=== PATIENT | female | born 2000 | race Caucasian/White ===

== ENCOUNTER 2023-09-09 11:46 | Emergency (ER) | payer OTHER, SELFPAY ==
[2023-09-09 12:07] VITALS: BP 113/75
[2023-09-09 12:40] LABS: % Basophils 0.6 % (0-2); % Eosinophils 1.2 % (0-6); % Immature Granulocytes 0.1 % (0-0.5); % Lymphocytes 29.6 % (20.5-51.1); % Monocytes 6.9 % (1.7-9.3); % Neutrophils 61.6 % (42.2-75.2); Absolute Eosinophils 0.1 10^3/uL (0-0.7); Absolute Monocytes 0.5 10^3/uL (0.1-0.6); Absolute Neutrophils 4.2 10^3/uL (1.4-6.5); Hematocrit 38.2 % (37.0-47.0); Hemoglobin 12.8 g/dL (12.0-16.0); Mean Corp Hgb Conc. 33.5 g/dL (33.0-37.0); Mean Corpuscular Hgb 26.7 pg (27.0-31.0); Mean Corpuscular Volume 79.6 fL (81.0-99.0); Mean Platelet Volume 9.9 fL (7.4-10.4); Nucleated Red Blood Cells % 0 %; Platelet Count 290 10^3/uL (130-400); Red Cell Dist. Width 12.8 % (11.5-14.5); White Blood Cell Count 6.9 10^3/uL (4.8-10.8)
[2023-09-09 12:46] LABS: HCG, Serum Qualitative Screen Negative
[2023-09-09 12:52] LABS: ALT (SGPT) 22 U/L (0-35); AST (SGOT) 21 U/L (14-36); Albumin 3.9 g/dl (3.5-5.0); Alkaline Phosphatase 75 U/L (38-126); Blood Urea Nitrogen 13 mg/dl (7-17); Calcium 9.2 mg/dl (8.4-10.2); Carbon Dioxide 24 mmol/L (22-30); Chloride 108 mmol/L (98-107); Glucose 98 mg/dl (70-99); Lipase 186 U/L (23-300); Potassium 3.8 mmol/L (3.5-5.1); Sodium 137 mmol/L (135-145); Total Bilirubin 0.6 mg/dl (0.2-1.3); Total Protein 6.8 g/dl (6.3-8.2); eGFR > 60.00
[2023-09-09 13:09] LABS: Urine Albumin Negative (Neg - Trace); Urine Bilirubin Negative (Negative); Urine Character Clear (Clear); Urine Color Yellow; Urine Glucose Negative (Negative); Urine Ketone Negative (Negative); Urine Leukocyte 2+ (Negative); Urine Nitrite Negative (Negative); Urine Occult Blood Negative (Negative); Urine Urobilinogen Negative (Neg - 1+)
[2023-09-09 13:50] VITALS: BMI 33.6
[2023-09-09 14:12] LABS: Urine Squamous Cell >30 /LPF (Few)
[2023-09-09 14:13] LABS: Urine Bacteria Few (Negative); Urine Red Blood Cell 0-2 /HPF (0-2)
--- NOTE | 2023-09-09 14:17 | ED.GENMED ---
History of Present Illness
General
Chief Complaint: Abdominal Pain
Time Seen by Provider: 09/09/23 13:30
Travel History
Have you had any contact with someone who has COVID-19?: No
Do you have any symptoms of coronavirus? Fever > 100 degrees, chills, cough, shortness of breath, sore throat, loss of taste or smell, muscle aches, or headache?: No
History of Present Illness
History of Present Illness:
22-year-old female presents the emergency department for evaluation of right upper quadrant abdominal pain that radiates to the left upper quadrant as well as the left shoulder ongoing for the past several weeks. Patient was seen at [facility] last week where she had an ultrasound, I viewed the ultrasound report on the patient's phone showing a 2.5 cm gallbladder polyp but no evidence for cholelithiasis or cholecystitis. 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
recommended to take omeprazole. She reports she has increased pain after eating essentially any food. Denies any prior abdominal surgeries
Past History
Past History
ED Past Medical History: Psychiatric and Other (Migraines, palpitations)
ED Past Surgical History: None
Patient has exhibited threatening behavior?: No
Review of Systems
Review of Systems
Allergies reviewed?: Yes
All Other Systems: ROS reviewed and negative except as documented in HPI and ROS
Phy Exam
Physical Exam
Physical Exam:
GEN: Well appearing, NAD, WDWN
HEENT: Oral mucosa moist, no scleral icterus
Cardiac: Regular rate
Lung: No respiratory distress, no tachypnea
Abdomen: Soft and nontender, negative Cortez's
MSK: No gross deformity or injuries
Skin: Good color, no pallor or jaundice, no rashes
Neuro: AO x3, moves all extremities freely
Psych: Calm, cooperative
Course
Orders/Labs/Results
Orders:
Orders
09/09/23 12:10
Test Result ONCE
09/09/23 12:20
Complete Blood Count/With Diff Urgent
Comprehensive Metabolic Panel Urgent
HCG, Serum Qualitative Screen Urgent
Lipase Urgent
09/09/23 12:21
Urinalysis Reflex To Culture Urgent
Date Specimen was Collected: 09/09/23
Time Specimen was Collected: 12:10
Urine Microscopic Reflex Cult Urgent
Urine Culture Urgent
TYREE Source: U
Specimen Description:
Date Specimen was Collected: 09/09/23
Time Specimen was Collected: 12:10
Abnormal Lab Results
09/09/23 09/09/23
12:20 12:21
MCV 79.6 L fL
(81.0-99.0)
MCH 26.7 L pg
(27.0-31.0)
Chloride 108 H mmol/L
(98-107)
Leukocyte Esterase Rfl 2+ A
(Negative)
Urine Bacteria (Reflex) Few A
(Negative)
09/09/23 12:20
09/09/23 12:20
Vital Signs
Initial and Last Documented VS:
Initial Vital Signs
Temp Pulse Resp BP Pulse Ox
99 F 101 16 113/75 98
09/09/23 12:07 09/09/23 12:07 09/09/23 12:07 09/09/23 12:07 09/09/23 12:07
Last Documented Vital Signs
Temp Pulse Resp BP Pulse Ox
99 F 101 16 113/75 98
09/09/23 12:07 09/09/23 12:07 09/09/23 12:07 09/09/23 12:07 09/09/23 12:07
MDM/Problems Addressed
MDM/Problems Addressed:
Exam is most consistent with acute gastritis. Do not suspect biliary disease given the patient's age coupled with reassuring ultrasound from outside hospital. Recommend the patient take high-dose PPIs and Carafate as well as famotidine, outpatient
GI follow-up encouraged
*Critical Care Note
Total Time (30-74mins, 75-104mins- exclusive of procedures): Not Applicable
ED Attending Note
-
Portions of this chart may have been created with voice recognition software.� Occasional wrong word or��sound alike� substitutions may have occurred due to the inherent limitations of voice recognition software.
Discharge Plan
Departure
Patient Disposition: Home (Routine Discharge)
Date of Disposition: 09/09/23
Time of Disposition: 14:17
Patient with high blood pressure during this ER visit?: No
Discharge Problem:
Gastritis
Instructions: Gastritis (DC), Ulcer and Gastritis Diet
Prescriptions:
New
pantoprazole [Protonix] 40 mg tablet,delayed release (DR/EC)
40 mg PO BID 14 Days Qty: 28 0RF
famotidine 20 mg tablet
20 mg PO BID 14 Days Qty: 28 0RF
Referrals:
Sadia Ovalle MD [Active] - As needed
Grace Child DO [Family Provider] -
Activity Restrictions/Additional Instructions:
Stop the omeprazole in favor of pantoprazole
Interventions
Interventions:
*Risk Screen - Suicide Last Done: 09/09/23 13:51
*General Assessment Last Done: 09/09/23 13:51
*Neglect/Abuse Screening Last Done: 09/09/23 13:51
ED- Fall Risk Assessment Last Done: 09/09/23 13:51
*ED COVID-19 Vaccine History Last Done: 09/09/23 13:51
*Nursing Disposition Last Done: 09/09/23 14:27
OP-Mmhhmf-Ybrnssltqo Assessment Last Done: 09/09/23 13:51
Discharge Date and Time
Discharge Date/Time: 09/09/23 14:28
== END 2023-09-09 14:28 | disposition home or self-care (01) ==
LOC: EMR 11:46
PROVIDERS: Emergency Medicine; EMERGENCY PHYSICIAN Emergency Medicine; FAMILY PHYSICIAN Family Medicine
DX: K29.70 Gastritis, unspecified, without bleeding (principal)
CPT/HCPCS: 99283; 80053; 81003; 81015; 83690; 84703; 85025; 87086

== ENCOUNTER → 2024-11-24 08:16 | Outpatient (REF) | payer OTHER, SELFPAY | LOC: RAD 08:16 | PROVIDERS: ATTENDING PHYSICIAN Internal Medicine Gastroenterology; FAMILY PHYSICIAN Internal Medicine | DX: K82.4 Cholesterolosis of gallbladder (principal) | CPT/HCPCS: 76700 ==

== ENCOUNTER 2024-12-21 06:17 | Day surgery (SDC) | payer OTHER, SELFPAY | END 2024-12-21 10:23 | disposition home or self-care (01) | LOC: GI 06:17 | PROVIDERS: ATTENDING PHYSICIAN Internal Medicine Gastroenterology | DX: R19.4 Change in bowel habit (principal); K64.8 Other hemorrhoids | CPT/HCPCS: 45380; 88305 ==